=== PATIENT | female | born 1970 | race Caucasian/White ===

== ENCOUNTER 2018-12-31 08:22 | Observation (INO) ==
[2018-12-31 08:31] VITALS: BMI 23.7
[2018-12-31 09:06] LABS: BASOPHILS # (AUTO) 0.1 X10^3/uL (0.0-0.1); BASOPHILS % (AUTO) 1.6 % (0.2-1.0); EOSINOPHILS # (AUTO) 0.1 x10^3/uL (0.0-0.2); EOSINOPHILS % (AUTO) 2.8 % (0.9-2.9); HEMOGLOBIN 14.1 g/dL (12.0-16.0); LYMPHOCYTES % (AUTO) 22.1 % (21.0-51.0); MEAN CORPUSCULAR HEMOGLOBIN 32.3 pg (27.0-34.0); MEAN CORPUSCULAR HGB CONC 33.5 g/dL (33.0-35.0); MEAN CORPUSCULAR VOLUME 96.2 fL (80.0-100.0); MEAN PLATELET VOLUME 8.2 fL (7.4-11.0); MONOCYTES # (AUTO) 0.3 x10^3/uL (0.3-0.8); MONOCYTES % (AUTO) 5.9 % (0.0-13.0); NEUTROPHILS % (AUTO) 67.6 % (42.0-75.0); PLATELET COUNT 215 X10^3/uL (150.0-450.0); RED BLOOD COUNT 4.36 X10^6/uL (3.5-5.4); RED CELL DISTRIBUTION WIDTH 13.3 % (11.6-16.5); WHITE BLOOD COUNT 4.4 X10^3/uL (3.6-10.0)
[2018-12-31 09:19] LABS: ALANINE AMINOTRANSFERASE 61 Units/L (12-78); ALBUMIN 3.6 g/dL (3.4-5.0); ALKALINE PHOSPHATASE 64 Units/L (46-116); ASPARTATE AMINO TRANSFERASE 57 Units/L (15-37); BLOOD UREA NITROGEN 15 mg/dL (7-18); CALCIUM 8.9 mg/dL (8.5-10.1); CARBON DIOXIDE 31.4 mmol/L (21-32); CHLORIDE 106 mmol/L (98-107); CREATININE 1.32 mg/dL (0.55-1.02); SODIUM 142 mmol/L (136-145); TOTAL PROTEIN 6.9 g/dL (6.4-8.2); eGFR NON BLACK RACES 46 (>60)
--- NOTE | 2018-12-31 09:21 | CT ---
CT HEAD WITHOUT CONTRAST CLINICAL HISTORY: 48-year-old female with multiple syncopal episodes yesterday. Syncopal episode today with abrasion to the left cheek. COMPARISON: None. TECHNIQUE: Multiple axial CT images were obtained from the skull base to the cranial vertex without the administration of contrast. FINDINGS: No evidence of abnormal intra- or extra axial fluid collections, midline shift, or mass effect. Verduzco white differentiation is maintained. Age advanced cortical volume loss is present, with commensurate sulcal and ventricular prominence. The basal cisterns are normal in appearance. Arrested pneumatization of the frontal sinuses with the remaining imaged paranasal sinuses and mastoid air cells clear. Debris in the tympanic cavities is likely cerumen. IMPRESSION: 1. No acute intracranial process. 2. Nonspecific age advanced volume loss. Reported By:
--- NOTE | 2018-12-31 09:32 | DR.GENAD ---
HPI Time Seen Time Seen by Provider: 12/31/18 08:42 PCP Primary Care Physician: LAVERN Complaint/Symptoms Chief Complaint Doctors Comments: A 48 y/o female reported to the ED with c/o "passing" repeatedly x 5 yesterday and x 1 this morning. She denies pre-warning and these are not related to activities or position. She denies SOB or palpitations. She is aware of her surrounding when she comes to, and she denies urine or fecal impairments. Chief Complaint:: PT C/O PASSING OUT 5 TIMES ON 12/30/18, AND PT STATES SHE PASSED OUT TODAY AND PT HAS ABRASION TO THE LEFT SIDE OF HER CHEEK, AND ABRASION TO HER LEFT NARE, PT C/O NOSE BLEEDING ALSO,BR Source History Provided: Patient Mode of Arrival Mode of Arrival: Ambulatory Timing Onset of Chief Complaint: 12/30/18 PMH PMH Past Medical History: Yes Past Medical History: Depression Past Surgical History: Yes Surgical History: Past Surgical History Comment: HERNIA REPAIR, CYST TO OVARIES ,BR Family History History of Family Medical Conditions: Yes Family Medical History: Diabetes Mellitus and Hypertension Social History Does patient currently use any type of tobacco product: Yes Have you used tobacco products in the last 12 months: Yes Type of Tobacco Use: Cigarettes How many years tobacco product used: 35 Does any household member use tobacco: No Alcohol Use: None Do you use any recreational Drugs:: No Lives With: Family infectious screening In the last 2 months have you had wt loss of >10#?: NO Have you had fever, night sweats or hemotysis?: No Have you traveled outside the country in the last 6 months?: No Isolation: Standard ROS Review of Systems Constitutional: No Symptoms Reported Eyes: No Symptoms Reported ENTM: No Symptoms Reported Respiratoy: No Symptoms Reported Cardiovascular: Syncope Gastrointestinal/Abdominal: No Symptoms Reported Genitourinary: No Symptoms Reported Neurological: No Symptoms Reported and Speech Problem Musculoskeletal: No Symptoms Reported Integumentary: No Symptoms Reported Hematologic/Lymphatic: No Symptoms Reported Endocrine: No Symptoms Reported Psychiatric: No Symptoms Reported PE Vital Signs Vitals: Temperature 96.9 F Pulse Rate 73 Respiratory Rate 20 Blood Pressure 113/70 O2 Sat by Pulse Oximetry 97 General Limitations: No Limitations General Appearance: Alert and In No Apparent Distress Head Head Exam: Normocephalic Eyes Eye exam: Normal Appearance, PERRL and EOMI ENT ENT Exam: Normal Exam, Normal Oropharynx, Normal External Ear Exam, Mucous Membranes Moist and TM's Normal Bilaterally Nose Exam: Normal Nose Exam and Other; negative Sinus Tenderness, Nasal Deviation, Crepitus, Septal Hematoma, Laceration and Abrasion Mouth Exam: Normal Inspection; negative Drooling, Trismus, Lip Swelling, Tongue Elevation, Tongue Swelling and Laceration Throat Exam: Normal Inspection; negative Tonsillar Erythema, Tonsillomegaly, Tonsillar Exudate, R Peritonsillar Mass, L Peritonsillar Mass and Muffled Voice Neck Neck Exam: Normal Inspection, Full ROM and Trachea Midline Chest Chest Inspection: Normal Inspection and Symmetric Chest Wall Rise Respiratory Respiratory Exam: Normal Lung Sounds Bilat; negative Accessory Muscle Use, Chest Wall Tenderness, Prolonged Expiratory Phase, Respiratory Distress and Stridor Cardiovascular Cardiovascular Exam: Regular Rate, Normal Rhythm, +S1 and +S2 Abdominal Exam Abdominal Exam: Normal Inspection, Normal Bowel Sounds and Soft Abdominal Tenderness: negative RUQ, RLQ, LUQ, LLQ, Epigastrium, Suprapubic, Diffuse, Mild, Moderate and Severe Extremities Extremities Exam: Normal Inspection and Full ROM Back Back Exam: Normal Inspection Neurologic Neurological Exam: Alert, Oriented X3 and Normal Gait Psychiatric Psychiatric Exam: Normal Affect and Normal Mood Skin Skin Exam: Warm, Dry and Other (Abresion to Lt. cheek and on Lt. side of nose.) COURSE Reevaluation 1st: Unchanged Consultation Consultation Comments: I spoke with filler leaf cutter long provider for today, Dr. Jean. he agrees with request for in house placements. He requests cardiology evaluation for a tilt-test. Education/Counseling Education/Counseling: Patient, Education and Counseling Educated On: Treatment, Diagnosis, Prognosis and Needs for Follow Up ROR Labs Reviewed Laboratory Results Reviewed?: Yes Result Diagrams: 12/31/18 09:00 12/31/18 09:00 Laboratory: WBC 4.4 X10^3/uL (3.6-10.0) 12/31/18 09:00 RBC 4.36 X10^6/uL (3.5-5.4) 12/31/18 09:00 Hgb 14.1 g/dL (12.0-16.0) 12/31/18 09:00 Hct 42.0 % (36.0-47.0) 12/31/18 09:00 MCV 96.2 fL (80.0-100.0) 12/31/18 09:00 MCH 32.3 pg (27.0-34.0) 12/31/18 09:00 MCHC 33.5 g/dL (33.0-35.0) 12/31/18 09:00 RDW 13.3 % (11.6-16.5) 12/31/18 09:00 Plt Count 215 X10^3/uL (150.0-450.0) 12/31/18 09:00 MPV 8.2 fL (7.4-11.0) 12/31/18 09:00 Neut % (Auto) 67.6 % (42.0-75.0) 12/31/18 09:00 Lymph % (Auto) 22.1 % (21.0-51.0) 12/31/18 09:00 Christian % (Auto) 5.9 % (0.0-13.0) 12/31/18 09:00 Eos % (Auto) 2.8 % (0.9-2.9) 12/31/18 09:00 Baso % (Auto) 1.6 % (0.2-1.0) H 12/31/18 09:00 Neut # (Auto) 3.0 x10^3/uL (2.2-4.8) 12/31/18 09:00 Lymph # (Auto) 1.0 X10^3/uL (1.3-2.9) L 12/31/18 09:00 Christian # (Auto) 0.3 x10^3/uL (0.3-0.8) 12/31/18 09:00 Eos # (Auto) 0.1 x10^3/uL (0.0-0.2) 12/31/18 09:00 Baso # (Auto) 0.1 X10^3/uL (0.0-0.1) 12/31/18 09:00 Absolute Nucleated RBC 0.0 /100WBC 12/31/18 09:00 Sodium 142 mmol/L (136-145) 12/31/18 09:00 Corrected Sodium TNP 12/31/18 09:00 Potassium 3.6 mmol/L (3.5-5.1) 12/31/18 09:00 Chloride 106 mmol/L (98-107) 12/31/18 09:00 Carbon Dioxide 31.4 mmol/L (21-32) 12/31/18 09:00 BUN 15 mg/dL (7-18) 12/31/18 09:00 Creatinine 1.32 mg/dL (0.55-1.02) H 12/31/18 09:00 Est GFR (MDRD) Af Amer 56 (>60) L 12/31/18 09:00 Est GFR (MDRD) Non-Af 46 (>60) L 12/31/18 09:00 Glucose 79 mg/dL (65-99) 12/31/18 09:00 Calcium 8.9 mg/dL (8.5-10.1) 12/31/18 09:00 Corrected Calcium TNP 12/31/18 09:00 Total Bilirubin 0.20 mg/dL (0.2-1.0) 12/31/18 09:00 AST 57 Units/L (15-37) H 12/31/18 09:00 ALT 61 Units/L (12-78) 12/31/18 09:00 Alkaline Phosphatase 64 Units/L (46-116) 12/31/18 09:00 Total Protein 6.9 g/dL (6.4-8.2) 12/31/18 09:00 Albumin 3.6 g/dL (3.4-5.0) 12/31/18 09:00 Globulin 3.3 g/dL (2.5-4.5) 12/31/18 09:00 Albumin/Globulin Ratio 1.1 Ratio (1.1-2.1) 12/31/18 09:00 Urine Opiates Screen Negative (NEG=<300) 12/31/18 09:40 Urine Methadone Screen Negative (NEG=<300) 12/31/18 09:40 Ur Barbiturates Screen Negative (NEG=<200) 12/31/18 09:40 Ur Phencyclidine Scrn Negative (NEG=<25) 12/31/18 09:40 Ur Amphetamines Screen Negative (NEG=<1000) 12/31/18 09:40 U Benzodiazepines Scrn Negative (NEG=<200) 12/31/18 09:40 Urine Cocaine Screen Positive (NEG=<300) A 12/31/18 09:40 U Marijuana (THC) Screen Negative (NEG=<50) 12/31/18 09:40 Other Results Comments: Radiologist report on Brain CT Scan: no acute intracranial process. non-specific age advanced volume loss. XRAY XRAY Interpreted by: Radiologist and Self XRAY Findings: mild hyperinflation but w/o infiltrates. EKG Rate: 58 [place]: Normal Rhythm: NSR Block: None Hypertrophy: None ST: Normal Diagnosis Discharge Problem: Atypical syncope, Bipolar 1 disorder, depressed
--- NOTE | 2018-12-31 10:04 | RAD ---
HISTORY: Syncope Study: Chest PA and lateral Comparison: None Findings: The heart is within normal limits in size. The dixon are normal. The lungs are hyperinflated but free of acute infiltrates. No pleural effusions are identified. The bony thorax is unremarkable. IMPRESSION: Lungs mildly hyperinflated but clear Reported By:
--- NOTE | 2018-12-31 11:51 | CONS ---
Documented by User: NELSON FLOREZ 12/31/18 12:17 Cardiology Consult Consultation for Day of: Date: Chief Complaint Chief Complaint: Allergies Allergies Allergy/AdvReac Type Severity Reaction Status Date / Time codeine Allergy Verified 12/31/18 08:32 meperidine [From Demerol] Allergy Verified 12/31/18 08:32 penicillin G Allergy Verified 12/31/18 08:32 prednisone Allergy Verified 12/31/18 08:32 camphor [From Vicks Vaporub] AdvReac Verified 12/31/18 13:42 eucalyptus AdvReac Verified 12/31/18 13:42 [From Vicks Vaporub] menthol [From Vicks Vaporub] AdvReac Verified 12/31/18 13:42 petrolatum,white AdvReac Verified 12/31/18 13:42 [From Vicks Vaporub] turpentine oil AdvReac Verified 12/31/18 13:42 [From Vicks Vaporub] History of Present Illness History of Present Illness: Past Medical History Past Medical History: Past Surgical History Surgical History: Family History Family Medical History: Social History Does patient currently use any type of tobacco product: Have you used tobacco products in the last 12 months: Type of Tobacco Use: How many years tobacco product used: Does any household member use tobacco: Alcohol Use: Medications Home Medications: codeine Allergy (Verified 12/31/18 08:32) meperidine [From Demerol] Allergy (Verified 12/31/18 08:32) penicillin G Allergy (Verified 12/31/18 08:32) prednisone Allergy (Verified 12/31/18 08:32) CONTINUE taking the following medications clonidine HCl 0.1 mg PO HS 12/31/18 [History] paroxetine HCl 30 mg PO DAILY 12/31/18 [History] quetiapine 100 mg PO HS 12/31/18 [History] trazodone 100 mg PO HS 12/31/18 [History] Review of Systems Cardiovascular: Physical Exam Vital Signs: Temperature 96.9 F Pulse Rate 73 Respiratory Rate 20 Blood Pressure 113/70 O2 Sat by Pulse Oximetry 97 Medical Decision Making Reason for Consult: EKG Results: Labs reviewed: Significant abnormal labs: Cr 1.32 Radiology Reviewed: Significant Abnormal Xray: clear Chest xray Plan Plan: Documented by User: Tolu Sanchez 01/05/19 08:40 Cardiology Consult Allergies Allergies Allergy/AdvReac Type Severity Reaction Status Date / Time codeine Allergy Verified 12/31/18 08:32 meperidine [From Demerol] Allergy Verified 12/31/18 08:32 penicillin G Allergy Verified 12/31/18 08:32 prednisone Allergy Verified 12/31/18 08:32 camphor [From Vicks Vaporub] AdvReac Verified 12/31/18 13:42 eucalyptus AdvReac Verified 12/31/18 13:42 [From Vicks Vaporub] menthol [From Vicks Vaporub] AdvReac Verified 12/31/18 13:42 petrolatum,white AdvReac Verified 12/31/18 13:42 [From Vicks Vaporub] turpentine oil AdvReac Verified 12/31/18 13:42 [From Vicks Vaporub]
[2018-12-31 12:54] LABS: CKMB % 1.1 % (<4); CREATINE KINASE 134 Units/L (26-192); CREATINE KINASE MB 1.5 ng/mL (0-4.0); TROPONIN I < 0.02 ng/mL (0-1.5)
[2018-12-31] MEDS: NICOTINE PATCH TD SCH (15:49)
[2018-12-31] MEDS ORDERED: NORCO 5/325 MG TAB PO PRN (17:05)
[2018-12-31] MEDS ORDERED: TYLENOL 500 MG TAB EXTRA STRENGTH PO ONE (18:01)
[2018-12-31] MEDS: TYLENOL 500 MG TAB EXTRA STRENGTH PO SCH (18:22)
[2018-12-31 19:37] LABS: CKMB % 1.1 % (<4); CREATINE KINASE 133 Units/L (26-192); CREATINE KINASE MB 1.5 ng/mL (0-4.0); TROPONIN I < 0.02 ng/mL (0-1.5)
[2018-12-31] MEDS ORDERED: CATAPRES TAB 0.1 MG PO SCH (21:00)
[2018-12-31] MEDS ORDERED: DESYREL PO SCH (21:00)
[2018-12-31] MEDS ORDERED: SEROquel TAB 100 MG PO SCH (21:00)
[2019-01-01] MEDS: TYLENOL 500 MG TAB EXTRA STRENGTH PO SCH ×2 (06:11)
[2019-01-01] MEDS: NICOTINE PATCH TD SCH (08:40)
[2019-01-01] MEDS ORDERED: PAXIL PO SCH (09:00)
[2019-01-01 09:47] VITALS: BP 105/57
== END 2019-01-01 10:50 | disposition home or self-care (01) ==
LOC: ER 08:22 → MED/SURG 08:22
PROVIDERS: ADMIT Obstetrics & Gynecology Obstetrics; ATTEND Obstetrics & Gynecology Obstetrics
DX: Z79.899 Other long term (current) drug therapy; S00.12XA Contusion of left eyelid and periocular area, initial encounter; Y92.410 Unspecified street and highway as the place of occurrence of the external cause; F31.89 Other bipolar disorder; R55 Syncope and collapse; R07.89 Other chest pain; S00.83XA Contusion of other part of head, initial encounter; F14.90 Cocaine use, unspecified, uncomplicated; Z72.0 Tobacco use; W18.39XA Other fall on same level, initial encounter; F19.90 Other psychoactive substance use, unspecified, uncomplicated; R94.4 Abnormal results of kidney function studies
CPT/HCPCS: 36415; 70450; 71020; 71046; 80053; 80307; 82550; 82553; 84484; 85025; 93005; 96365; 99284; A4222; G0378; G0434